=== PATIENT | female | born 1995 | race Caucasian/White ===

== ENCOUNTER 2018-02-09 20:42 | Emergency (ER) | payer BC ==
[2018-02-09] MEDS ORDERED: oxyCODONE/Acetamin 5/325 MG* TAB PO ONE (21:29)
[2018-02-09] MEDS ORDERED: Ketorolac INJ* 30 MG/ML 1 ML VIAL IM ONE (21:30)
--- NOTE | 2018-02-09 21:39 | ED ---
Lower Extremity - HPI Summary HPI Summary: 22-year-old female presents with right ankle pain today. States she went down the slide and twisted her right ankle. She denies any previous injury to the ankle. No numbness or tingling. has deformity noted to ankle. She denies any knee pain. No other injury. She has not taking anything for pain. She has no medical conditions. - History of Current Complaint Chief Complaint: EDExtremityLower Stated Complaint: FALL,RT ANKLE APIN Time Seen by Provider: 02/09/18 21:17 Hx Last Menstrual Period: NOW Pain Intensity: 10 - Allergies/Home Medications Allergies/Adverse Reactions: Allergies Allergy/AdvReac Type Severity Reaction Status Date / Time azithromycin Allergy chest pain Verified 02/09/18 20:50 PMH/Surg Hx/FS Hx/Imm Hx Endocrine/Hematology History: Denies: Hx Diabetes, Hx Thyroid Disease Cardiovascular History: Denies: Hx Congestive Heart Failure, Hx Hypertension, Hx Pacemaker/ICD Respiratory History: Reports: Hx Asthma Denies: Hx Chronic Obstructive Pulmonary Disease (COPD) GI History: Denies: Hx Ulcer, Other GI Disorders - DENIES History: Reports: Hx Kidney Stones Denies: Hx Dialysis, Hx Renal Disease, Other Problems/Disorders - DENIES Musculoskeletal History: Reports: Hx Back Problems, Other Musculoskeletal History - SEVERE SCOLIOSIS, HERNIATED DISK (UNSURE OF LEVEL) Sensory History: Denies: Hx Hearing Aid Neurological History: Reports: Hx Headaches, Other Neuro Impairments/Disorders - dizziness Psychiatric History: Reports: Hx Panic Disorder - Surgical History Surgery Procedure, Year, and Place: TUBES IN EARS A CHILD - Immunization History Date of Tetanus Vaccine: 244 Date of Influenza Vaccine: up to date Infectious Disease History: No Infectious Disease History: Denies: Hx Clostridium Difficile, Hx Hepatitis, Hx Human Immunodeficiency Virus (HIV), Hx of Known/Suspected MRSA, Hx Shingles, Hx Tuberculosis, Hx Known/ Suspected VRE, Hx Known/Suspected VRSA, History Other Infectious Disease, Traveled Outside the [place] in Last 30 Days - Family History Known Family History: Negative: Diabetes - right ankle - Social History Alcohol Use: None Substance Use Type: Reports: None Smoking Status (MU): Never Smoked Tobacco Have You Smoked in the Last Year: No Review of Systems Negative: Fever Negative: Chest Pain Negative: Shortness Of Breath Positive: Myalgia - right ankle pain All Other Systems Reviewed And Are Negative: Yes Physical Exam Triage Information Reviewed: Yes Vital Signs On Initial Exam: Initial Vitals Temp Pulse Resp BP Pulse Ox 0 F 87 20 144/84 100 02/09/18 20:51 02/09/18 20:51 02/09/18 20:51 02/09/18 20:51 02/09/18 20:51 Vital Signs Reviewed: Yes Appearance: Positive: Well-Appearing Skin: Positive: Warm, Dry Head/Face: Positive: Normal Head/Face Inspection Eyes: Positive: Normal, Conjunctiva Clear ENT: Positive: Pharynx normal Respiratory/Lung Sounds: Positive: Clear to Auscultation, Breath Sounds Present Cardiovascular: Positive: Normal, RRR Musculoskeletal: Positive: Limited @ - right ankle, Other - Tenderness over her right malleolus lateral, good pulses, capillary refill less than 2 seconds, able to wiggle tetanus Neurological: Positive: Normal Psychiatric: Positive: Normal Procedures - Splinting ankle Location: ankle Hand-Made Type: orthoglass Splint: posterior walking Pre-Proc Neuro Vasc Exam: normal Post-Proc Neuro Vasc Exam: normal Diagnostics - Vital Signs Vital Signs Temp Pulse Resp BP Pulse Ox 02/09/18 20:51 0 F 87 20 144/84 100 - Laboratory Lab Statement: Any lab studies that have been ordered have been reviewed, and results considered in the medical decision making process. - Radiology ankle Xray Interpretation: Positive (See Comments) - Fibular fracture with widening of mortise joint Radiology Interpretation Completed By: ED Physician Lower Extremity Course/Dx - Course Course Of Treatment: 22-year-old female presents with right ankle pain today. States she went down the slide and twisted her right ankle. She denies any previous injury to the ankle. No numbness or tingling. has deformity noted to ankle. She denies any knee pain. No other injury. She has not taking anything for pain. She has no medical conditions. On exam edema noted to ambulate on his right ankle. Neurovascularly intact. X-ray shows a fibular fracture with displacement and widening of the mortise joint. Spoke with Dr. Marinelli who said to have call office in the morning. Placed in posterior and u splint. Told to remain nonweightbearing. Gave pain medication. Warned about signs of compartment syndrome. Patient understands agrees the plan. - Diagnoses Differential Diagnosis/HQI/PQRI: Positive: Fracture (Closed), Sprain, Strain Provider Diagnoses: Ankle fracture, right Discharge - Sign-Out/Discharge Documenting (check all that apply): Patient Departure - Discharge Plan Condition: Good Disposition: HOME Prescriptions: oxyCODONE/Acetamin 5/325 MG* [Percocet 5/325 TAB*] 1 tab PO Q6H PRN #16 tab MDD 4 PRN Reason: Pain Patient Education Materials: Ankle Fracture (ED) Referrals: Dede Austin NP [Primary Care Provider] - Jessica Marinelli MD [Medical Doctor] - Additional Instructions: Use crutches and stay nonweight bearing Keep splint on area and keep dry Call ortho office tomorrow to set up appointment for follow up at 8am Use ibuprofen for pain every 6 hours and use narcotic for breakthrough pain every 6 hours for pain Ice, elevate Return to ED if develop numbness or tingling or any new or worsening symptoms - Billing Disposition and Condition Condition: GOOD Disposition: Home
--- OUTSIDE RECORDS SUMMARY | 2018-02-09 21:53 | XMS REPORT ---
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 [address] PayID: [id number] ANA Fung [id number] Medigap Part B Effective: 2012 Policy Number: [employer] Sushma Ramirez Fredi [id number] Group Name: [employer] 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 Cigarette Use Never Smoked Cigarettes ETOH Use Denies alcohol use Recreational Drug Use Denies Drug Use Daily Caffeine Does Not Consume Caffeine occasional soda Enjoy Exercising Does not enjoy exercising Currently Active Patient is currently sexually active Allergies, Adverse Reactions, Alerts Date Description Reaction Status Severity Comments 12/11/2016 Azithromycin active stomach aches 10/20/2011 NKDA inactive Medications Medication Date Status Form Strength Qnty SIG Indications Ordering Provider Vitamin B-12 00// Active Tablets Sub 500mcg 1 by mouth Unknown 0000 every day Vitamin D 12/01/ Hx Capsules [id number] 6caps take 1 Dede (Ergocalciferol 2018 - capsule by Geovanna, ) 01/28/ 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 weekly (for 6 weeks) for vitamin d deficiency Lo/Ovral-28 04/17/ Hx Tablets 0.3-30mg- 1Mont 1 by mouth Z30.09 Dede 2017 - mcg h every day Short, CONTACT LENS ASSISTANT 2016 Norgestimate-Et 04/17/ Hx Tablets 0.25-35mg 28tab One every Dede h Estradiol 2017 - -mcg s day Short, CONTACT LENS ASSISTANT 2017 Lyrica 10/17/ Hx Capsules 75mg 60cap take 1 M54.17 Shawnti 2016 - s capsule Cruz Chavez 12/11/ Before Bed [facility] 2016 For One Week Then Increase To Twice Daily Meloxicam 10/17/ Hx Tablets 15mg 30tab 1 by mouth M54.17 Shawnti 2016 - s daily for Cruz Chavez 12/11/ pain, take [facility]C 2016 with food Colcrys 09/08/ Hx Tablets 0.6mg 14tab take one M10.00 Shawnti 2016 - s tablet by Cruz Chavez, 12/11/ mouth twice [facility] 2016 daily until pain resolves or diarrhea develops Amoxicillin 04/03/ Hx Tablets 875mg 20tab 1 by mouth H66.42 Shawnti 2014 - s twice a day Cruz Chavez 04/13/ for ear [facility] 2014 infection Ciprodex 04/03/ Hx Suspension 0.3-0.1% 7.500 4 drops in H60.392 Shawnti 2014 - ml the left Cruz Chavez 04/13/ ear twice a [facility]C 2014 day for 7 days Ketoconazole 06/27/ Hx Cream 2% 15gm apply small 110.5 Johnnti 2013 - amount to Cruz Chavez 09/08/ affected [facility] 2016 area twice a day Claritin-D 24 03/31/ Hx Tablets ER 10-240mg 30tab take one 381.04 Shawnti Hour 2013 - 24HR s tablet by Cruz Chavez, 09/08/ mouth once [facility] 2016 daily as needed allergies and congestion Symbicort 01/26/ Hx Aerosol 160-4.5mc 10.20 inhale 2 493.92 Mikiewnti 2013 - g/Act 0gm puffs twice KoryAlyssa Scott, 12/11/ a day [facility] 2016 Albuterol 01/26/ Hx Nebulizer (2.5mg/3M 90ml use one Mikiewnti Sulfate 2013 - ) 0.083% vial in Cruz Chavez, 12/11/ nebulizer [facility] 2016 four times a day as needed wheeze/shor tness of breath Advair Diskus 01/05/ Hx Aerosol 250-50mcg 60uni use one 493.92 Mikiewnti 2013 - /Dose ts inhalation Cruz Chavez, 01/26/ two times a [facility] 2013 day for asthma Naprosyn 07/28/ Hx Tablets 500mg 60tab take one 465.9 Mikiewnti 2013 - s tablet by KoryAlyssa Scott, 01/05/ mouth twice [facility] 2013 a day for pain and swelling in the shoulder Prednisone 07/08/ Hx Tablets 50mg 5tabs one pill po 493.92 Mikiewnti 2013 - daily for 5 R. Scott, 01/05/ days for [facility] 2014 breathing Asmanex 120 07/08/ Hx Aerosol 220mcg/In 1unit 1 inh daily 493.92 Shawnti Metered Doses 2012 - h s for asthma Cruz Chavez, 01/05/ [facility] 2014 Desloratadine 01/28/ Hx Tablets 5mg 30tab 1 po daily 477.1 Mikiewnti 2012 - s for Kory. Scott, 07/08/ allergies [facility]C 2012 Lo/Ovral-28 11/30/ Hx Tablets 0.3-30mg- 90tab 1 po qd V25.09 Mikiewnti 2012 - mcg s R. Scott, 01/28/ [facility]C 2012 Proair HFA 11/27/ Hx Aerosol 108(90Bas 8.500 2 puffs Diana 2012 - e) gm q4hr as R. Scott, 01/28/ mcg/Act needed [facility] 2018 Azithromycin 11/27/ Hx Tablets 250mg 6tabs 2 po qd day 466.0 Hieu 2012 - , then 1 Walter, 01/28/ po qd days M.D. 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 Medications Administered in Office Medication Date Status Form Strength Qnty SIG Indications Ordering Provider Medroxyprogesteron 09/24 Administered Injection Lab and e Acetate 1 MG /2012 Office (Depo-Provera) Services Injection Depo 07/02 Administered Injection Lab and Provera--Injection /2011 Office --150 MG Services Depo 04/16 Administered Injection Shawnti Provera--Injection /2011 Cruz Chavez, --150 MG [facility]ESS [facility]C Immunizations CPT Code Status Date Vaccine Lot # [id number] Given 12/11/2016 Tdap (Adacel) [id number] 38153 Given 04/23/2006 Menactra (meningococcal conjugate vaccine) 69559 Given 07/18/2005 Tdap (Adacel) 83629 Given 04/22/2005 Varicella (Chicken Pox) Vaccine 20059 Given 01/29/1999 Inactivated Polio Vaccine, Injectable (Ipol) 75143 Given 01/29/1999 MMR (Measles,Mumps,Rubella) 13926 Given 12/25/1998 DTaP (Daptacel) 41590 Given 08/27/1995 MMR (Measles,Mumps,Rubella) 02482 Given 08/27/1995 DTaP (Daptacel) 21646 Given 1994 Hep B Vaccine, Ped/Adol Dose 3 Dose (Engerix or Recombivax) 84207 Given 1994 Inactivated Polio Vaccine, Injectable (Ipol) 37102 Given 1994 DTaP (Daptacel) 40531 Given 1994 Inactivated Polio Vaccine, Injectable (Ipol) 51282 Given 1994 DTaP (Daptacel) 62026 Given 1994 Hep B Vaccine, Ped/Adol Dose 3 Dose (Engerix or Recombivax) 36716 Given 1994 Inactivated Polio Vaccine, Injectable (Ipol) 00079 Given 1994 DTaP (Daptacel) 83854 Given 1994 Hep B Vaccine, Ped/Adol Dose 3 Dose (Engerix or Recombivax) 05185 Refused 10/17/2016 Influenza Virus Vaccine, Quadrivalent, 3 Yr > Quad , Preserv Free Vital Signs Date Vital Result Comment 01/28/2018 Weight 239.00 lb Weight in kg's 108.410 BP Systolic 110 mmHg BP Diastolic 70 mmHg Heart Rate 74 /min Body Temperature 99.4 F Respiratory Rate 14 /min 11/27/2017 Weight 236.00 lb Weight in kg's 107.050 BP Systolic 118 mmHg BP Diastolic 74 mmHg Heart Rate 72 /min Body Temperature 98.3 F Respiratory Rate 16 /min O2 % BldC Oximetry 98 % 05/18/2017 Weight 225.00 lb Weight in kg's 102.060 BP Systolic 120 mmHg BP Diastolic 90 mmHg Heart Rate 68 /min Body Temperature 98.9 F Respiratory Rate 18 /min Last Menstrual Period [id number] 04/17/2017 Weight 222.00 lb Weight in kg's 100.699 BP Systolic 110 mmHg BP Diastolic 70 mmHg Heart Rate 88 /min Body Temperature 98.7 F Respiratory Rate 14 /min 04/09/2017 Weight 224.00 lb Weight in kg's 101.606 BP Systolic 100 mmHg BP Diastolic 62 mmHg Heart Rate 64 /min Body Temperature 98.8 F Respiratory Rate 14 /min 12/11/2016 Weight 232.00 lb Weight in kg's 105.235 BP Systolic 90 mmHg BP Diastolic 68 mmHg Heart Rate 68 /min Body Temperature 97.9 F Respiratory Rate 12 /min Height 65.5 inches 5'5.50" BMI (Body Mass Index) 38.0 kg/m2 Last Menstrual Period [id number] 10/17/2016 Weight 231.00 lb Weight in kg's 104.782 BP Systolic 100 mmHg BP Diastolic 60 mmHg Heart Rate 60 /min Body Temperature 98.3 F Respiratory Rate 12 /min 09/08/2016 Weight 233.00 lb Weight in kg's 105.689 BP Systolic 122 mmHg BP Diastolic 74 mmHg Heart Rate 74 /min Body Temperature 98.4 F Respiratory Rate 16 /min O2 % BldC Oximetry 99 % 04/03/2015 Weight 232.00 lb Weight in kg's 105.235 BP Systolic 110 mmHg BP Diastolic 90 mmHg Heart Rate 64 /min Body Temperature 97.1 F 06/27/2014 Weight 223.00 lb Weight in kg's 101.153 BP Systolic 100 mmHg BP Diastolic 70 mmHg Heart Rate 72 /min Body Temperature 98.4 F 03/31/2014 Weight 226.00 lb Weight in kg's 102.514 BP Systolic 100 mmHg BP Diastolic 70 mmHg Heart Rate 93 /min 01/26/2014 Weight 228.00 lb Weight in kg's 103.421 BP Systolic 106 mmHg BP Diastolic 72 mmHg Heart Rate 92 /min Body Temperature 98.5 F O2 % BldC Oximetry 98 % 01/05/2014 Weight 231.00 lb Weight in kg's 104.782 BP Systolic 138 mmHg BP Diastolic 64 mmHg Heart Rate 84 /min Body Temperature 98.3 F O2 % BldC Oximetry 98 % 12/07/2013 Weight 226.00 lb Weight in kg's 102.514 BP Systolic 114 mmHg BP Diastolic 70 mmHg Heart Rate 88 /min Body Temperature 98.2 F Height 64.5 inches 5'4.50" BMI (Body Mass Index) 38.2 kg/m2 07/28/2013 Weight 216.00 lb Weight in kg's 97.978 BP Systolic 100 mmHg BP Diastolic 70 mmHg Heart Rate 60 /min Body Temperature 98.4 F 07/08/2013 Weight 214.00 lb Weight in kg's 97.070 BP Systolic 124 mmHg BP Diastolic 86 mmHg Heart Rate 80 /min Body Temperature 96.9 F O2 % BldC Oximetry 98 % 04/08/2013 Weight 211.00 lb Weight in kg's 95.710 BP Systolic 114 mmHg BP Diastolic 78 mmHg Heart Rate 96 /min Weight Percentile >97th 01/28/2013 Weight 209.00 lb Weight in kg's 94.802 BP Systolic 114 mmHg BP Diastolic 78 mmHg Heart Rate 102 /min Body Temperature 97.8 F Weight Percentile >97th O2 % BldC Oximetry 98 % 11/30/2012 Weight 207.00 lb Weight in kg's 93.895 BP Systolic 100 mmHg BP Diastolic 70 mmHg Heart Rate 82 /min Height 64.5 inches 5'4.50" Height Percentile 53 % Weight Percentile >97th BMI (Body Mass Index) 35.0 kg/m2 Body Mass Index Percentile 97 % O2 % BldC Oximetry 99 % 11/27/2012 BP Systolic 99 mmHg BP Diastolic 60 mmHg Heart Rate 98 /min Body Temperature 98.9 F O2 % BldC Oximetry 98 % Ra 08/03/2012 Weight 202.00 lb Weight in kg's 91.627 BP Systolic 99 mmHg BP Diastolic 62 mmHg Heart Rate 98 /min Body Temperature 98.9 F Weight Percentile 97th 05/03/2012 Weight 192.00 lb Weight in kg's 87.091 BP Systolic 112 mmHg BP Diastolic 66 mmHg Heart Rate 72 /min Weight Percentile 96th 04/16/2012 Weight 189.00 lb Weight in kg's 85.730 BP Systolic 110 mmHg BP Diastolic 80 mmHg Heart Rate 72 /min Weight Percentile 9602/19/2012 Weight 190.00 lb Weight in kg's 86.184 BP Systolic 100 mmHg BP Diastolic 70 mmHg Heart Rate 68 /min Weight Percentile 9601/29/2012 Weight 191.00 lb Weight in kg's 86.638 BP Systolic 90 mmHg BP Diastolic 60 mmHg Heart Rate 76 /min Body Temperature 99.3 F Weight Percentile 9612/17/2011 Weight 190.00 lb Weight in kg's 86.184 BP Systolic 100 mmHg BP Diastolic 62 mmHg Heart Rate 68 /min Body Temperature 98.0 F Weight Percentile 9610/20/2011 Weight 184.00 lb Weight in kg's 83.462 BP Systolic 100 mmHg BP Diastolic 70 mmHg Heart Rate 72 /min Height 65 inches 5'5" Height Percentile 62 % Weight Percentile 96th BMI (Body Mass Index) 30.6 kg/m2 Body Mass Index Percentile 95 % Right Visual Acuity Distance 20/20 Results Test Date Test Result H/L Range Note Laboratory test finding 01/14/2018 Ferritin 33.1 ng/mL 11-307 1 TSH (Thyroid Stim Horm) 1.48 mcIU/mL 0.34-5.60 2 Vitamin D Total 25(Oh) 29.1 ng/mL 20-50 3 Vitamin B12 1279 pg/mL High 180-914 4 CBC Auto Diff 01/14/2018 White Blood Count 8.5 10^3/uL 3.5-10.8 Red Blood Count 4.92 10^6/uL 4.00-5.40 Hemoglobin 13.6 g/dL 12.0-16.0 Hematocrit 40 % 35-47 Mean Corpuscular Volume 81 fL 80-97 Mean Corpuscular Hemoglobin 28 pg 27-31 Mean Corpuscular HGB Conc 34 g/dL 31-36 Red Cell Distribution Width 13 % 10.5-15 Platelet Count 388 10^3/uL 150-450 Mean Platelet Volume 7.9 um3 7.4-10.4 Abs Neutrophils 5.7 10^3/uL 1.5-7.7 Abs Lymphocytes 2.2 10^3/uL 1.0-4.8 Abs Monocytes 0.5 10^3/uL 0-0.8 Abs Eosinophils 0.1 10^3/uL 0-0.6 Abs Basophils 0 10^3/uL 0-0.2 Abs Nucleated RBC 0 10^3/uL Granulocyte % 66.5 % 38-83 Lymphocyte % 26.4 % 25-47 Monocyte % 5.3 % 0-7 Eosinophil % 1.2 % 0-6 Basophil % 0.6 % 0-2 Nucleated Red Blood Cells % 0.1 Iron & Iron Binding Capacity 01/14/2018 Iron 53 g/dL 50-212 Unsaturated Iron Binding 346 g/dL Total Iron Binding Capacity 399 g/dL 250-450 Transferrin 285 mg/dL 203-362 % Iron Saturation 13 % Low 15-55 Comp Metabolic Panel 01/14/2018 Sodium 139 mmol/L 135-145 Potassium 3.7 mmol/L 3.5-5.0 Chloride 103 mmol/L 101-111 Co2 Carbon Dioxide 29 mmol/L 22-32 Anion Gap 7 mmol/L 2-11 Glucose 105 mg/dL High 70-100 Blood Urea Nitrogen 11 mg/dL 6-24 Creatinine 0.73 mg/dL 0.51-0.95 BUN/Creatinine Ratio 15.1 8-20 Calcium 9.3 mg/dL 8.6-10.3 Total Protein 6.9 g/dL 6.4-8.9 Albumin 4.4 g/dL 3.2-5.2 Globulin 2.5 g/dL 2-4 Albumin/Globulin Ratio 1.8 1-3 Total Bilirubin 0.70 mg/dL 0.2-1.0 Alkaline Phosphatase 100 U/L 34-104 Alt 40 U/L 7-52 Ast 25 U/L 13-39 Egfr Non- 98.8 >60 Egfr 119.5 >60 5 Laboratory test finding 11/27/2017 Ferritin 33.8 ng/mL 11-307 6 TSH (Thyroid Stim Horm) 2.04 mcIU/mL 0.34-5.60 7 Vitamin D Total 25(Oh) 13.8 ng/mL Low 20-50 8 Vitamin B12 437 pg/mL 180-914 9 CBC Auto Diff 11/27/2017 White Blood Count 7.5 10^3/uL 3.5-10.8 Red Blood Count 5.09 10^6/uL 4.0-5.4 Hemoglobin 14.1 g/dL 12.0-16.0 Hematocrit 41 % 35-47 Mean Corpuscular Volume 81 fL 80-97 Mean Corpuscular Hemoglobin 28 pg 27-31 Mean Corpuscular HGB Conc 34 g/dL 31-36 Red Cell Distribution Width 13 % 10.5-15 Platelet Count 359 10^3/uL 150-450 Mean Platelet Volume 7.7 um3 7.4-10.4 Abs Neutrophils 4.8 10^3/uL 1.5-7.7 Abs Lymphocytes 2.1 10^3/uL 1.0-4.8 Abs Monocytes 0.5 10^3/uL 0-0.8 Abs Eosinophils 0.1 10^3/uL 0-0.6 Abs Basophils 0 10^3/uL 0-0.2 Abs Nucleated RBC 0 10^3/uL Granulocyte % 63.7 % 38-83 Lymphocyte % 28.0 % 25-47 Monocyte % 6.3 % 0-7 Eosinophil % 1.3 % 0-6 Basophil % 0.7 % 0-2 Nucleated Red Blood Cells % 0.1 Iron & Iron Binding Capacity 11/27/2017 Iron 49 g/dL Low 50-212 Unsaturated Iron Binding 374 g/dL Total Iron Binding Capacity 423 g/dL 250-450 Transferrin 302 mg/dL 203-362 % Iron Saturation 12 % Low 15-55 Comp Metabolic Panel 11/27/2017 Sodium 138 mmol/L Low 139-145 Potassium 4.0 mmol/L 3.5-5.0 Chloride 102 mmol/L 101-111 Co2 Carbon Dioxide 28 mmol/L 22-32 Anion Gap 8 mmol/L 2-11 Glucose 93 mg/dL 70-100 Blood Urea Nitrogen 10 mg/dL 6-24 Creatinine 0.72 mg/dL 0.51-0.95 BUN/Creatinine Ratio 13.9 8-20 Calcium 9.5 mg/dL 8.6-10.3 Total Protein 6.9 g/dL 6.4-8.9 Albumin 4.7 g/dL 3.2-5.2 Globulin 2.2 g/dL 2-4 Albumin/Globulin Ratio 2.1 1-3 Total Bilirubin 0.70 mg/dL 0.2-1.0 Alkaline Phosphatase 98 U/L 34-104 Alt 48 U/L 7-52 Ast 35 U/L 13-39 Egfr Non- 100.4 >60 Egfr 129.1 >60 10 Laboratory test 05/21/2017 Urine Culture And SEE RESULT BELOW 11 finding Sensitivities Urine DIP 05/21/2017 Leukocytes 2+ High Neg Urine Nitrites neg Neg Urobilinogen norm Norm Total Protein, Urine +1 High Neg Urine pH 6 5-6 Urine Blood 250 High Neg Specific Flushing 1.020 1.01-1.02 Urine Ketones small Neg Urine Bilirubin neg Neg Urine Glucose norm Norm Laboratory test 05/18/2017 HCG DIP Test neg Neg finding Laboratory test 05/18/2017 Gardnerella/Yeast: SEE RESULT BELOW 12 finding Vaginal Dna GC/Chlamydia 05/18/2017 Chlamydia trachomatis Negative Negative Amplified Rna Rna Neisseria gonorrhoeae (GC) Rna Negative Negative Urine DIP 05/18/2017 Leukocytes ++ Neg Urine Nitrites neg Neg Urobilinogen neg Norm Total Protein, Urine neg Neg Urine pH 5 5-6 Urine Blood about 50 Neg Specific Flushing 1.025 High 1.01-1.02 Urine Ketones neg Neg Urine Bilirubin neg Neg Urine Glucose neg Norm Laboratory test finding 05/18/2017 Cytology SEE RESULT BELOW 13 Trichomonas Vaginalis Rna Negative Negative 14 Laboratory test finding 12/11/2016 Hemoglobin A1c (Glyco 5.0 % Less than 6.0 15 HGB) TSH (Thyroid Stim Horm) 1.47 mcIU/mL 0.34-5.60 16 Lipid Profile (Trig/Chol/HDL) 12/11/2016 Triglycerides 193 mg/dL 17 Cholesterol 133 mg/dL 18 HDL Cholesterol 38.5 mg/dL 19 LDL Cholesterol 56 mg/dL 20 CBC Auto Diff 12/11/2016 White Blood Count 10.5 10^3/uL 3.5-10.8 Red Blood Count 4.98 10^6/uL 4.0-5.4 Hemoglobin 13.7 g/dL 12.0-16.0 Hematocrit 41 % 35-47 Mean Corpuscular Volume 83 fL 80-97 Mean Corpuscular Hemoglobin 27 pg 27-31 Mean Corpuscular HGB Conc 33 g/dL 31-36 Red Cell Distribution Width 13 % 10.5-15 Platelet Count 358 10^3/uL 150-450 Mean Platelet Volume 8 um3 7.4-10.4 Abs Neutrophils 7.1 10^3/uL 1.5-7.7 Abs Lymphocytes 2.7 10^3/uL 1.0-4.8 Abs Monocytes 0.5 10^3/uL 0-0.8 Abs Eosinophils 0.1 10^3/uL 0-0.6 Abs Basophils 0 10^3/uL 0-0.2 Abs Nucleated RBC 0.01 10^3/uL Granulocyte % 67.4 % 38-83 Lymphocyte % 25.8 % 25-47 Monocyte % 5.2 % 1-9 Eosinophil % 1.2 % 0-6 Basophil % 0.4 % 0-2 Nucleated Red Blood Cells % 0 CBC Auto Diff 09/14/2015 White Blood Count 8.8 10^3/uL 3.5-10.8 Red Blood Count 5.09 10^6/uL 4.0-5.4 Hemoglobin 13.9 g/dL 12.0-16.0 Hematocrit 41 % 35-47 Mean Corpuscular Volume 81 fL 80-97 Mean Corpuscular Hemoglobin 27 pg 27-31 Mean Corpuscular HGB Conc 34 g/dL 31-36 Red Cell Distribution Width 13 % 10.5-15 Platelet Count 418 10^3/uL 150-450 Mean Platelet Volume 7 um3 Low 7.4-10.4 Abs Neutrophils 4.5 10^3/uL 1.5-7.7 Abs Lymphocytes 3.5 10^3/uL 1.0-4.8 Abs Monocytes 0.6 10^3/uL 0-0.8 Abs Eosinophils 0.1 10^3/uL 0-0.6 Abs Basophils 0.1 10^3/uL 0-0.2 Abs Nucleated RBC 0.01 10^3/uL Granulocyte % 50.5 % 38-83 Lymphocyte % 40.1 % 25-47 Monocyte % 7.2 % 1-9 Eosinophil % 1.6 % 0-6 Basophil % 0.6 % 0-2 Nucleated Red Blood Cells % 0.1 Urinalysis Profile 09/14/2015 Urine Color Yellow Urine Appearance Cloudy Urine Specific Flushing 1.026 1.010-1.030 Urine pH 5.0 5-9 Urine Urobilinogen Negative Negative Urine Ketones Negative Negative Urine Protein 1+(30 mg/dL) Negative Urine Leukocytes Trace Negative Urine Blood 3+ Negative Urine Nitrite Negative Negative Urine Bilirubin Negative Negative Urine Glucose Negative Negative Urine White Blood Cell 2+(11-20/hpf) Absent Urine Red Blood Cell 3+(>10/hpf) Absent Urine Bacteria Absent Absent Urine Squamous Epithelial Cell Present Absent Laboratory test finding 09/14/2015 HCG < 0.60 mIU/mL 21 Laboratory test finding 09/14/2015 Urine Culture SEE RESULT BELOW 22 Comp Metabolic Panel 09/14/2015 Sodium 135 mmol/L 133-145 Potassium 3.4 mmol/L Low 3.5-5.0 Chloride 103 mmol/L 101-111 Co2 Carbon Dioxide 26 mmol/L 22-32 Anion Gap 6 mmol/L 2-11 Glucose 104 mg/dL High 70-100 Blood Urea Nitrogen 12 mg/dL 6-24 Creatinine 0.78 mg/dL 0.51-0.95 BUN/Creatinine Ratio 15.4 8-20 Calcium 9.1 mg/dL 8.6-10.3 Total Protein 7.1 g/dL 6.4-8.9 Albumin 4.5 g/dL 3.2-5.2 Globulin 2.6 g/dL 2-4 Albumin/Globulin Ratio 1.7 1-3 Total Bilirubin 1.10 mg/dL High 0.2-1.0 Alkaline Phosphatase 95 U/L 34-104 Alt 31 U/L 7-52 Ast 16 U/L 13-39 Egfr Non- 93.2 >60 Egfr 119.9 >60 23 Laboratory test finding 11/30/2014 Lipase 22 U/L 11.0-82.0 C Reactive Protein 7.03 mg/L High < 5.00 24 Urine Culture SEE RESULT BELOW 25 Urinalysis Profile 11/30/2014 Urine Color Yellow Urine Appearance Clear Urine Specific Flushing 1.017 1.010-1.030 Urine pH 5.0 5-9 Urine Urobilinogen Negative Negative Urine Ketones Negative Negative Urine Protein Negative Negative Urine Leukocytes Trace Negative Urine Blood 2+ Negative Urine Nitrite Negative Negative Urine Bilirubin Negative Negative Urine Glucose Negative Negative Urine White Blood Cell Trace(0-5/hpf) Absent Urine Red Blood Cell 2+(6-10/hpf) Absent Urine Bacteria 1+ Absent Urine Squamous Epithelial Cell Present Absent CBC Auto Diff 11/30/2014 White Blood Count 14.0 10^3/uL High 4.8-10.8 Red Blood Count 5.12 10^6/uL 4.0-5.4 Hemoglobin 14.6 g/dL 12.0-16.0 Hematocrit 43 % 35-47 Mean Corpuscular Volume 83 fL 80-97 Mean Corpuscular Hemoglobin 29 pg 27-31 Mean Corpuscular HGB Conc 34 g/dL 31-36 Red Cell Distribution Width 13 % 10.5-15 Platelet Count 416 10^3/uL 150-450 Mean Platelet Volume 8 um3 7.4-10.4 Abs Neutrophils 12.3 10^3/uL High 1.5-7.7 Abs Lymphocytes 1.3 10^3/uL 1.0-4.8 Abs Monocytes 0.4 10^3/uL 0-0.8 Abs Eosinophils 0 10^3/uL 0-0.6 Abs Basophils 0 10^3/uL 0-0.2 Abs Nucleated RBC 0 10^3/uL Granulocyte % 87.4 % High 38-83 Lymphocyte % 9.2 % Low 25-47 Monocyte % 3.0 % 1-9 Eosinophil % 0.1 % 0-6 Basophil % 0.3 % 0-2 Nucleated Red Blood Cells % 0 Comp Metabolic Panel 11/30/2014 Sodium 135 mmol/L 133-145 Potassium 3.9 mmol/L 3.5-5.0 Chloride 99 mmol/L Low 101-111 Co2 Carbon Dioxide 28 mmol/L 22-32 Anion Gap 8 mmol/L 2-11 Glucose 139 mg/dL High 70-100 Blood Urea Nitrogen 9 mg/dL 6-24 Creatinine 0.69 mg/dL 0.51-0.95 BUN/Creatinine Ratio 13.0 8-20 Calcium 9.7 mg/dL 8.6-10.3 Total Protein 7.9 g/dL 6.4-8.9 Albumin 4.8 g/dL 3.2-5.2 Globulin 3.1 g/dL 2-4 Albumin/Globulin Ratio 1.5 1-3 Total Bilirubin 0.70 mg/dL 0.2-1.0 Alkaline Phosphatase 111 U/L High 34-104 Alt 34 U/L 7-52 Ast 24 U/L 13-39 Egfr Non- 108.5 >60 Egfr 139.5 >60 26 Laboratory test finding 12/07/2013 Strep Screen NEG Neg Laboratory test finding 04/08/2013 HCG DIP Test neg Neg Basic Metabolic Panel 04/08/2013 Sodium 139 mmol/L 133-145 Potassium 3.5 mmol/L 3.5-5.0 Chloride 103 mmol/L 101-111 Co2 Carbon Dioxide 27.0 mmol/L 22-32 Anion Gap 9.0 mmol/L 2-11 Glucose 78 mg/dL 70-100 Blood Urea Nitrogen 8 mg/dL 6-24 Creatinine 0.80 mg/dL 0.50-1.40 BUN/Creatinine Ratio 10.0 8-20 Calcium 9.3 mg/dL 8.1-9.9 Egfr Non- 93.4 >60 Egfr 120.1 >60 27 Urine DIP 04/08/2013 Leukocytes ++ Neg Urine Nitrites neg Neg Urine pH 5 5-6 Total Protein, Urine neg Neg Urine Glucose norm Norm Urine Ketones neg Neg Urobilinogen norm Norm Urine Bilirubin neg Neg Urine Blood trace Neg Specific Flushing 1.01 1.01-1.02 Laboratory test finding 04/08/2013 Hemoglobin A1c 5.2 % Less than 6.0 28 Throat-Beta Strept 02/13/2013 Throat Beta Strep (SEE NOTE) 29 Culture Urine Culture And 11/28/2012 Urine Culture (SEE NOTE) 30 Sensitivities Comp Metabolic Panel 11/28/2012 Sodium 139 mmol/L 133-145 Potassium 3.6 mmol/L 3.5-5.0 Chloride 105 mmol/L 101-111 Co2 Carbon Dioxide 27.0 mmol/L 22-32 Anion Gap 7.0 mmol/L 2-11 Glucose 93 mg/dL 70-100 Blood Urea Nitrogen 10 mg/dL 6-24 Creatinine 0.70 mg/dL 0.50-1.40 BUN/Creatinine Ratio 14.3 8-20 Calcium 9.3 mg/dL 8.1-9.9 Total Protein 7.8 g/dL 6.2-8.1 Albumin 4.4 g/dL 3.6-5.4 Globulin 3.4 g/dL 2-4 Albumin/Globulin Ratio 1.3 1-3 Total Bilirubin 0.7 mg/dL 0.4-1.5 Alkaline Phosphatase 104 U/L 50-176 Alt 38 U/L 14-54 Ast 27 U/L 12-42 Egfr Non- 109.0 >60 Egfr 140.2 >60 31 Laboratory test finding 11/28/2012 Amylase 32 U/L 20-120 Lipase 31 U/L 22-51 C Reactive Protein 1.5 mg/dL High Less than 0.5 Serum Negative Negative 32 CBC Auto Diff 11/28/2012 White Blood Count 10.1 10^3/uL 4.8-10.8 Red Blood Count 5.32 10^6/uL 4.0-5.4 Hemoglobin 14.8 g/dL 12.0-16.0 Hematocrit 43 % 35-47 Mean Corpuscular Volume 81 fL 80-97 Mean Corpuscular Hemoglobin 28 pg 27-31 Mean Corpuscular HGB Conc 34 g/dL 31-36 Red Cell Distribution Width 13 % 10.5-15 Platelet Count 393 10^3/uL 150-450 Mean Platelet Volume 7 um3 Low 7.4-10.4 Abs Neutrophils 6.6 10^3/uL 1.5-7.7 Abs Lymphocytes 2.7 10^3/uL 1.0-4.8 Abs Monocytes 0.7 10^3/uL 0-0.8 Abs Eosinophils 0.1 10^3/uL 0-0.6 Abs Basophils 0 10^3/uL 0-0.2 Abs Nucleated RBC 0 10^3/uL Granulocyte % 65.4 % 38-83 Lymphocyte % 26.4 % 25-47 Monocyte % 6.5 % 1-9 Eosinophil % 1.4 % 0-6 Basophil % 0.3 % 0-2 Nucleated Red Blood Cells % 0 Urinalysis 11/28/2012 Urine Color Yellow Urine Appearance Clear Urine Specific Flushing 1.016 1.010-1.030 Urine Esterase 2+ Negative Urine Nitrate Negative Negative Urine Urobilinogen Negative E.U./dL Negative Urine Protein Negative mg/dL Negative Urine pH 5.0 5-9 Urine Blood 3+ Negative Urine Ketones Negative mg/dL Negative Urine Bilirubin Negative Negative Urine Glucose Negative mg/dL Negative Urine Microscopic 11/28/2012 Urine WBC 1+ (<10 /hpf) None Seen Urine RBC 2+ (>3-10 /hpf) None Seen Bacteria Urine 1+ None Seen Laboratory test finding 08/03/2012 Genital Culture (SEE NOTE) 33 GC/Chlamydia Amplified Rna 08/03/2012 GC/Chlamydia Rna (SEE NOTE) 34 Laboratory test finding 04/16/2012 HCG DIP Test NEG Neg CBC Auto Diff 01/28/2012 White Blood Count 9.5 CUMM 4.8-10.8 Red Cell Count 4.95 CUMM 4.2-5.4 Hemoglobin 13.9 g/dL 12.0-16.0 Hematocrit 41 % 35-47 Mean Corpuscular Volume 83 um3 79-97 Mean Corpuscular Hemoglob 28 pg 27-31 Mean Corpuscular HGB Cone 34 g/dL 32-36 Redcell Distribution WDTH 13 % 10.5-15 Platelet Count 394 CUMM 150-450 Mean Platelet Volume 7.4 um3 7.4-10.4 Gran % 70.7 % 38-83 Lymph % 23.0 % Low 25-47 Mononuclear % 5.1 % 1-9 Eosinophil % 0.9 % 0-6 Basophil % 0.3 % 0-2 Abs Lymphs 2.2 1.0-4.8 Abs Mononuclear 0.5 0-0.8 Absolute Neutrophil Count 6.7 1.5-7.7 Abs Eosinophils 0.1 0-0.6 Abs Basophils 0 0-0.2 Comp Metabolic Panel 01/28/2012 Sodium 136 mmol/L 135-145 Potassium 3.6 mmol/L 3.5-5.0 Chloride 100 mmol/L Low 101-111 Co2 (Carbon Dioxide) 29.0 mmol/L 22-32 Anion Gap 7.0 mmol/L 2-11 35 Glucose 100 mg/dL 70-100 BUN 7 mg/dL 6-24 Creatinine 0.7 mg/dL 0.50-1.40 One Over Creatinine 1.42 BUN/Creatinine Ratio 10.0 8-20 Calcium 9.4 mg/dL 8.1-9.9 Total Protein 7.1 GM/DL 6.2-8.1 Albumin 4.3 GM/DL 3.6-5.4 Globulin 2.8 GM/DL 2-4 Albumin/Globulin Ratio 1.5 1-3 Bilirubin Total 1.1 mg/dL 0.4-1.5 36 Alkaline Phosphatase 96 U/L 40-122 Alt (SGPT) 32 U/L 14-54 Ast (Sgot) 25 U/L 12-42 Laboratory test finding 01/28/2012 Amylase 34 U/L 20-120 37 Lipase 33 U/L 22-51 Urinalysis W/Microscopic 01/28/2012 Ua Color YELLOW Yellow Appearance-Urine CLOUDY Clear Specific Flushing-Ur 1.022 1.010-1.030 Esterase-Urine 3+ Negative Nitrite NEGATIVE Negative Chrqzhxekvkt-Tl-KPV NEGATIVE Negative Protein-Urine TRACE Negative PH-Urine 8.5 5-9 Blood-Urine NEGATIVE Negative Ketones-Urine NEGATIVE Negative Bilirubin-Ur NEGATIVE Negative Glucose-Urine NEGATIVE Negative WBC-Urine 0-2 0-5 RBC-Urine NONE SEEN 0-2 Epith Cells-Ur MANY None Bacteria-Urine TRACE None Amorphous Sed-U 2+ None Liver Function Panel 01/28/2012 Bilirubin Direct 0.4 mg/dL 0.1-0.5 Indirect Bilirubin 0.7 mg/dL 0.3-1.0 38 Urine Culture & Sensitivi 01/28/2012 M <SEE NOTE> 39 Urine DIP 10/20/2011 Leukocytes NEG Neg Urine Nitrites NEG Neg Urine pH 5 5-6 Total Protein, Urine NEG Neg Urine Glucose NORM Norm Urine Ketones NEG Neg Urobilinogen NORM Norm Urine Bilirubin NEG Neg Urine Blood NEG Neg Specific Flushing N/A Low 1.01-1.02 1 [id number] 2 [id number] 3 [id number] 4 Normal Range 180 to 914 Indeterminate Range 145 to 180 Deficient Range <145 5 Because ethnic data is not always readily available, this report includes an eGFR for both -Americans and non- Americans. The National Kidney Disease Education Program (NKDEP) does not endorse the use of the MDRD equation for patients that are not between the ages of 18 and 70, are , have extremes of body size, muscle mass, or nutritional status, or are non- or non-. According to the National Kidney Foundation, irrespective of diagnosis, the stage of the disease is based on the level of kidney function: Stage Description GFR(mL/min/1.73 m(2)) 1 Kidney damage with normal or decreased GFR 90 2 Kidney damage with mild decrease in GFR 60-89 3 Moderate decrease in GFR 30-59 4 Severe decrease in GFR 15-29 5 Kidney failure <15 (or dialysis) 6 [id number] 7 [id number] 8 [id number] 9 Normal Range 180 to 914 Indeterminate Range 145 to 180 Deficient Range <145 10 Because ethnic data is not always readily available, this report includes an eGFR for both -Americans and non- Americans. The National Kidney Disease Education Program (NKDEP) does not endorse the use of the MDRD equation for patients that are not between the ages of 18 and 70, are , have extremes of body size, muscle mass, or nutritional status, or are non- or non-. According to the National Kidney Foundation, irrespective of diagnosis, the stage of the disease is based on the level of kidney function: Stage Description GFR(mL/min/1.73 m(2)) 1 Kidney damage with normal or decreased GFR 90 2 Kidney damage with mild decrease in GFR 60-89 3 Moderate decrease in GFR 30-59 4 Severe decrease in GFR 15-29 5 Kidney failure <15 (or dialysis) 11 SEE RESULT BELOW Name: JADYN HAWKINS : [address]: Dede Austin NP Acct: [id number] Unit: [id number] AGE: 21 Location: [facility] Re05/21/17 SEX: F Status: REG REF SPEC: [id number] SANDEEP: 05/21/[address] [facility] [address]: Dede Austin NP REQ: [id number] RECD: 05/21/17 STATUS: COMP _ SOURCE: URINE SPDESC: ORDERED: Urine Culture COMMENTS: [id number] Urine Source: Random Procedure Result Reported Site Urine Culture Final 05/23/17- 0759 ML No growth of clinically significant organisms * ML - MAIN LAB ([facility]) . END OF REPORT * ML=Testing performed at Main Lab DEPARTMENT OF PATHOLOGY, [address] [place] [address] George Marroquin M.D. Director [facility] # [id number] 12 SEE RESULT BELOW Name: JADYN HAWKINS : [address]: Dede Austin NP Acct: [id number] Unit: [id number] AGE: 21 Location: [facility] Re05/18/17 SEX: F Status: REG REF SPEC: [id number] SANDEEP: 05/18/17-[address] [facility] [address]: Dede Austin NP REQ: [id number] RECD: 05/19/17 STATUS: COMP _ SOURCE: VAGINAL SPDESC: ORDERED: Joseluis,Yeast DNA COMMENTS: [id number] Procedure Result Reported Site Gardnerella/Yeast: Vaginal DNA Final 05/19/17- 1801 ML Organism 1 Negative Gardnerella Organism 2 Negative Lexus The presence of G. vaginalis, although suggestive, is not diagnostic for bacterial vaginosis. Results should be interpreted in conjuction with other clinical and laboratory data available. Women with vaginal discharge should be evaluated for risk factors of cervicitis and pelvic inflammatory disease, toxic shock syndrome (S.aureus), and if present, evaluated for organisms not included in this assay such as N. gonorrhoeae, C. trachomatis, Mobiluncus, Mycoplasma and/or Prevotella. Mixed infections may occur. The performance of this test on patient specimens collected during or immediately after antimicrobial therapy is unknown. The presence or absence of Lexus species, or G. vaginalis cannot be used as a test for therapeutic success or failure. * ML - MAIN LAB ([facility]) . END OF REPORT * ML=Testing performed at Main Lab DEPARTMENT OF PATHOLOGY, [address] [place] [address] George Marroquin M.D. Director [facility] # [id number] 13 SEE RESULT BELOW Name: JADYN HAWKINS GLENDY : [address]: Dede Austin NP Acct: [id number] Unit: [id number] AGE: 21 Location: [facility] Re05/18/17 SEX: F Status: REG REF SPEC: [id number] SANDEEP: 05/18/17-[address]: Dede Austin NP REQ: [id number] RECD: 05/19/17-1256 STATUS: SOUT _ ORDERED: TP IMAGE ANAL, HPV 16/18 GENE COMMENTS: [id number] FINAL DIAGNOSIS Negative for Intraepithelial lesion or Malignancy COMMENTS: Vial reprocessed due to excess blood and scant cellularity on first slide. Reprocessing successful. A. Ectocervical/Endocervical Specimen Adequacy: Satisfactory of evaluation Transformation zone component identified Patient Information: HPV: Thin Layer Pap Test w/reflex to high risk HPV RNA testing when ASCUS HPV 16/18 Genotype Reflex Actual Specimen Date: 05/18/17 LMP If Unknown: unknown Spec Date if unknown: unknown Signed (signature on file) CORNEL Caal (ASCP) 05/20 1453 This Pap test was evaluated with the assistance of the [employer] Test Imaging System. Due to cytologic findings at the meringuer microscope, comprehensive manual rescreening by a Pocket Cutter may be required. The Pap Smear is a screening test designed to aid in the detection of premalignant and malignant conditions of the uterine cervix. It is not a diagnostic procedure and should not be used as the sole means of detecting cervical cancer. Both false- positive and false- negative reports do occur. Depending on your risk status, a Pap smear should be obtained and evaluated every 1-3 years. END OF REPORT * ML=Testing performed at Main Lab DEPARTMENT OF PATHOLOGY, [address] [place] [address] George Marroquin M.D. Director [facility] # [id number] 14 [id number] GC/Chlamydia Source?: Endocervical Trichomonas Source: Endocervical 15 Therapeutic target for the treatment of diabetes Mellitus patients is <7% HBA1C, and in selective patients <6.0%.Please refer to [place] Diabetes Association Diabetic care guidelines for further information. 16 [id number] 17 Desirable <150 Borderline high 150-199 High 200-499 Very High >500 18 Desirable <200 Borderline high 200-239 High >239 19 Low <40 Desirable: 40-60 High: >60 20 Desirable: <100 mg/dL Near Optimal: 100-129 mg/dL Borderline High: 130-159 mg/dL High: 160-189 mg/dL Very High: >189 mg/dL 21 <5.0 Negative 5.0 - 25.0 Indeterminate (Repeat testing recommended after 72 hours) >25.0 Positive Perimenopausal women can display HCG levels of up to 20 mIU/mL 22 SEE RESULT BELOW Name: JADYN HAWKINS : [address]: Thelma Juarez MD Acct: [id number] Unit: [id number] AGE: 20 Location: ED Re09/14/15 SEX: F Status: DEP ER SPEC: [id number] SANDEEP: 09/14/[address] [facility] [address]: Thelma Juarez MD REQ: [id number] RECD: 09/14/15 STATUS: CARLOS LUO DR: Diana Chavez CONTACT LENS ASSISTANT _ SOURCE: URINE SPDESC: ORDERED: Urine Culture Procedure Result Reported Site Urine Culture Final 09/15/15- 0856 ML No growth of clinically significant organisms * ML - MAIN LAB ([facility]) . END OF REPORT * ML=Testing performed at Main Lab DEPARTMENT OF PATHOLOGY, [address] [place] [address] George Marroquin M.D. Director [facility] # [id number] 23 Because ethnic data is not always readily available, this report includes an eGFR for both -Americans and non- Americans. The National Kidney Disease Education Program (NKDEP) does not endorse the use of the MDRD equation for patients that are not between the ages of 18 and 70, are , have extremes of body size, muscle mass, or nutritional status, or are non- or non-. According to the National Kidney Foundation, irrespective of diagnosis, the stage of the disease is based on the level of kidney function: Stage Description GFR(mL/min/1.73 m(2)) 1 Kidney damage with normal or decreased GFR 90 2 Kidney damage with mild decrease in GFR 60-89 3 Moderate decrease in GFR 30-59 4 Severe decrease in GFR 15-29 5 Kidney failure <15 (or dialysis) 24 Acute inflammation: >10.00 25 SEE RESULT BELOW Name: JADYN HAWKINS : [address]: Moni Bales MD Acct: [id number] Unit: [id number] AGE: 19 Location: ED Re11/30/14 SEX: F Status: DEP ER SPEC: [id number] SANDEEP: 11/30/[address]: Moni Bales MD REQ: [id number] RECD: 11/30/14 STATUS: CARLOS LUO DR: Diana Chavez CONTACT LENS ASSISTANT _ SOURCE: URINE SPDESC: ORDERED: Urine Culture Procedure Result Verified Site Urine Culture Final 12/02/14- 0837 ML No Growth Day 2 (<1,000 CFU/mL) * ML - MAIN LAB ([facility]) . END OF REPORT * ML=Testing performed at Main Lab DEPARTMENT OF PATHOLOGY, [address] [place] [address] George Marroquin M.D. Director [facility] # [id number] 26 Because ethnic data is not always readily available, this report includes an eGFR for both -Americans and non- Americans. The National Kidney Disease Education Program (NKDEP) does not endorse the use of the MDRD equation for patients that are not between the ages of 18 and 70, are , have extremes of body size, muscle mass, or nutritional status, or are non- or non-. According to the National Kidney Foundation, irrespective of diagnosis, the stage of the disease is based on the level of kidney function: Stage Description GFR(mL/min/1.73 m(2)) 1 Kidney damage with normal or decreased GFR 90 2 Kidney damage with mild decrease in GFR 60-89 3 Moderate decrease in GFR 30-59 4 Severe decrease in GFR 15-29 5 Kidney failure <15 (or dialysis) 27 Because ethnic data is not always readily available, this report includes an eGFR for both -Americans and non- Americans. The National Kidney Disease Education Program (NKDEP) does not endorse the use of the MDRD equation for patients that are not between the ages of 18 and 70, are , have extremes of body size, muscle mass, or nutritional status, or are non- or non-. According to the National Kidney Foundation, irrespective of diagnosis, the stage of the disease is based on the level of kidney function: Stage Description GFR(mL/min/1.73 m(2)) 1 Kidney damage with normal or decreased GFR 90 2 Kidney damage with mild decrease in GFR 60-89 3 Moderate decrease in GFR 30-59 4 Severe decrease in GFR 15-29 5 Kidney failure <15 (or dialysis) 28 Therapeutic target for the treatment of diabetes Mellitus patients is <7% HBA1C, and in selective patients <6.0%.Please refer to [place] Diabetes Association Diabetic care guidelines for further information. 29 RUN DATE: 02/16/13 [facility] LAB LIVE PAGE 1 RUN TIME: [address] [place] [address] Specimen Inquiry Name: JADYN HAWKINS : [address]: Abdulaziz Gillespie MD Acct: [id number] Unit: [id number] AGE: 17 Location: [facility] Re02/13/13 SEX: F Status: DEP ER SPEC: [id number] SANDEEP: 02/13/[address] [facility] [address]: Abdulaziz Gillespie MD REQ: [id number] RECD: 02/14/13 STATUS: CARLOS LUO DR: Diana Chavez CONTACT LENS ASSISTANT _ SOURCE: THROAT SPDESC: ORDERED: Throat Beta Str QUERIES: Medent Number [id number] Procedure Result Verified Site Throat Beta Strep Culture Final 02/16/13- 822 ML Negative For Group A Beta Streptococcus END OF REPORT * ML=Testing performed at Main Lab DEPARTMENT OF PATHOLOGY, [facility] [employer] [place], [place] [address] George Marroquin M.D. Director [facility] Permit #[id number] 30 RUN DATE: 11/30/12 [facility] LAB LIVE PAGE 1 RUN TIME: 0665 [facility] [place], [place] [address] Specimen Inquiry Name: JADYN HAWKINS : [address]: Jj Ortiz DO Acct: [id number] Unit: [id number] AGE: 17 Location: ED Re11/28/12 SEX: F Status: DEP ER SPEC: [id number] SANDEEP: 11/28/12-[address]: Jj Ortiz DO REQ: [id number] RECD: 11/28/12 STATUS: CARLOS LUO DR: Diana Chavez CONTACT LENS ASSISTANT _ SOURCE: URINE SPDESC: ORDERED: Urine Culture Procedure Result Verified Site Urine Culture Final 11/30/12- 0935 ML Organism 1 NORMAL NEIL [place] Count 75-100,000 (Many) CFU/ML END OF REPORT * ML=Testing performed at Main Lab DEPARTMENT OF PATHOLOGY, [address] [place] [address] George Marroquin M.D. Director [facility] Permit #[id number] 31 Because ethnic data is not always readily available, this report includes an eGFR for both -Americans and non- Americans. The National Kidney Disease Education Program (NKDEP) does not endorse the use of the MDRD equation for patients that are not between the ages of 18 and 70, are , have extremes of body size, muscle mass, or nutritional status, or are non- or non-. According to the National Kidney Foundation, irrespective of diagnosis, the stage of the disease is based on the level of kidney function: Stage Description GFR(mL/min/1.73 m(2)) 1 Kidney damage with normal or decreased GFR 90 2 Kidney damage with mild decrease in GFR 60-89 3 Moderate decrease in GFR 30-59 4 Severe decrease in GFR 15-29 5 Kidney failure <15 (or dialysis) 32 This test detects intact HCG only and is indicated for the early detection of . 33 RUN DATE: 08/06/12 [facility] LAB LIVE PAGE 1 RUN TIME: [address] [place] [address] Specimen Inquiry Name: MARIOWANJADYN MAY : [address]: Diana Chavez NP Acct: [id number] Unit: [id number] AGE: 17 Location: [facility] Re08/03/12 SEX: F Status: REG REF SPEC: [id number] SANDEEP: 08/03/[address] [facility] [address]: Diana Chavez NP REQ: [id number] RECD: 08/03/12 STATUS: COMP _ SOURCE: VAGINAL SPDESC: ORDERED: Genital Culture QUERIES: Medent Number [id number] Procedure Result Verified Site Genital Culture Final 08/06/12- 1033 ML Organism 1 JOSELUIS VAGINALIS - PRESUMPTIVE Quantity 2+ Organism 2 NORMAL NEIL Quantity 3+ END OF REPORT * ML=Testing performed at Main Lab DEPARTMENT OF PATHOLOGY, [address] [place] [address] George Marroquin M.D. Director [facility] Permit #[id number] 34 RUN DATE: 08/06/12 [facility] LAB LIVE PAGE 1 RUN TIME: [address] [place], [place] [address] Specimen Inquiry Name: MARIOJADYN PIKE : [address]: Diana Chavez NP Acct: [id number] Unit: [id number] AGE: 17 Location: [facility] Re08/03/12 SEX: F Status: REG REF SPEC: [id number] SANDEEP: 08/03/12-[address]: Diana Chavez NP REQ: [id number] RECD: 08/03/12 STATUS: COMP _ SOURCE: ENDOCERVIX SPDESC: ORDERED: EDWARD/Leobardoam RNA QUERIES: Medent Number [id number] Procedure Result Verified Site Chlamydia Trachomatis RNA Final 08/06/12- 1542 ML NEGATIVE for Chlamydia trachomatis rRNA GC (N. gonorrhoeae) RNA Final 08/06/12- 1542 ML NEGATIVE for Neisseria gonorrhoeae rRNA A negative result does not preclude the presence of a C. trachomatis or N. gonorrhoeae infection because results are dependent on adequate specimen collection, absence of inhibitors, and sufficient rRNA to be detected. Test results may be affected by improper specimen collection, improper storage, technical error, or specimen mixup. Limitations of the Procedure: The Aptima Combo 2 Assay is not intended for the evaluation of suspected sexual abuse or for other medico-legal indications. For those patients for whom a false positive result may have adverse psychosocial impact, the [facility] recommends retesting by a method using an alternate technology. Therapeutic failure or success cannot be determined with the Aptima Combo 2 Assay since nucleic acid may persist following appropriate antimicrobial therapy. Results from the Aptima Combo 2 Assay should be interpreted in conjunction with other laboratory and clinical data available to the clinican. CONTINUED ON NEXT PAGE * ML=Testing performed at Main Lab DEPARTMENT OF PATHOLOGY, [facility] [place], [place] [address] George Marroquin M.D. Director [facility] Permit #[id number] RUN DATE: 08/06/12 [facility] LAB LIVE PAGE 2 RUN TIME: 166 [facility] [address] [place], [place] [address] Specimen Inquiry Patient: JADYN HAWKINS [id number] (Continued) Specimen: [id number] Collected: 08/03/12 Received: 08/03/12 (Continued) Procedure Result Verified Site GC (N. gonorrhoeae) RNA Final (continued) 08/06/12 3044 Performance characteristics for detecting C. trachomatis and N. gonorrhoeae are derived from high prevalence populations. Positive results in low prevalence populations should be interpreted carefully with the understanding that the likelihood of a false positive may be higher than a true positive. END OF REPORT * ML=Testing performed at Main Lab DEPARTMENT OF PATHOLOGY, [address] [place] [address] George Marroquin M.D. Director [facility] Permit #[id number] 35 Anion gap measurement may be of limited value in the presence of any alkalosis, especially in a combined acid base disorder. . 36 A metabolite of Naproxen, O-desmethylnaproxen, has been shown to interfere with the Jendinoik-Sage method for measuring total bilirubin. Samples from patients who have taken Naproxen have shown spurious elevation in total bilirubin levels. 37 PLEASE NOTE NEW REFERENCE RANGE. 38 Please note updated reference range, effective 02/07/10 39 RUN DATE: 01/30/12 [facility] NMI LIVE PAGE 1 RUN TIME: 1248 Specimen Inquiry RUN USER: INTERFACE Name: JADYN HAWKINS GLENDY Status: DEP ER Re01/28/12 Age/Sex: 16/F Unit#: [id number] Location: ED : [birth year] SPEC #: [id number] SANDEEP: 01/28/12 STATUS: COMP REQ #: [id number] RECD: 01/28/[address]: [facility] SOURCE: URINE ENTR: 01/28/[address]: Scott HAND,Diana Arroyo [facility]: ORDERED: URINE C S ACT WKST: UR 01/30/12 #1 Procedure Result Verified Site > URINE CULTURE SENSITIVI Final 01/30/12- 1247 ML SCANT NORMAL URETHRAL OR PERINEAL NEIL ML - [facility] Permit #[id number] [address] [place] [address] DEPARTMENT OF PATHOLOGY, [address] [place] [address] [facility] Permit #[id number] George Marroquin M.D. Director Dai Tomas M.D. Mechanical System Technician Procedures Date CPT Code Description Status 09/24/2012 90490 Therapeutic,Prophylactic,Or Diagnostic Inj,SC/Im Completed Specify Drug 07/02/2012 43213 Therapeutic,Prophylactic,Or Diagnostic Inj,SC/Im Completed Specify Drug 04/16/2012 74442 Therapeutic,Prophylactic,Or Diagnostic Inj,SC/Im Completed Specify Drug 02/19/2012 79766 Destruction,Benign Lesions, Up To 14 Lesions Completed Encounters Type Date Location Provider CPT E/M Dx Office Visit 11/27/2017 3:00p [place] [address] R53.83 Office Visit 05/18/2017 4:30p [place] [address] Z11.3 Z01.419 N94.10 R32 Office Visit 04/17/2017 4:00p [place] [address] Z30.09 Office Visit 04/09/2017 4:30p [place] [address] R59.0 H66.93 Office Visit 12/11/2016 1:30p Main Office Diana Chavez, PRESS WASHER-C 14663 Z00.00 Z23 Office Visit 10/17/2016 11:45a Main Office Diana Chavez, PRESS WASHER-C 19670 M54.17 Office Visit 09/08/2016 3:45p Main Office Shaalcon Chavez, PR[employer] W[employer]ER-C 39807 M10.00 Office Visit 04/03/2015 9:45a Main Office Shakindrai Cruz Chavez, PRESS WASHER-C 21575 H66.42 H60.392 Office Visit 06/27/2014 11:15a Main Office Shawtarasi Cruz Chavez, PRESS WASHER-C 38862 110.5 Office Visit 03/31/2014 3:45p Main Office Shawnti Kory. Scott, PRESS WASHER-C 83626 381.04 Office Visit 01/26/2014 2:45p Main Office Diana Chavez, PRESS WASHER-C 56672 493.92 Office Visit 01/05/2014 9:45a Main Office Diana Chavez, PRESS WASHER-C 50235 493.92 Office Visit 12/07/2013 10:00a Main Office Hieu Watson M.D. 65543 465.9 Office Visit 07/28/2013 2:15p Main Office Diana Chavez, PRESS WASHER-C 02411 465.9 Office Visit 07/08/2013 3:45p Main Office Diana Chavez, PRESS WASHER-C 92509 465.9 493.92 Office Visit 04/08/2013 3:00p Main Office Diana Chavez, PRESS WASHER-C 29946 783.5 Office Visit 01/28/2013 10:45a Main Office Diana Chavez, PRESS WASHER-C 80005 477.1 Office Visit 11/30/2012 1:30p Main Office Diana Chavez, PRESS WASHER-C 95946 V70.0 V25.09 Office Visit 11/27/2012 9:30a Main Office Hieu Watson M.D. 54303 466.0 Office Visit 08/03/2012 3:45p Main Office Mikiewslade Chavez, PRESS WASHER-C 78465 626.8 Office Visit 05/03/2012 11:15a Main Office Diana Chavez [facility] [address]89[address] 922.31 Office Visit 04/16/2012 3:15p Main Office Diana Chavez [facility]- 85541 V25.09 Office Visit 01/29/2012 3:30p Main Office Diana Chavez [facility] 40913 V25.09 Office Visit 12/17/2011 9:45a Main Office Tiki Maxwell [facility] 13044 493.90 Office Visit 10/20/2011 4:15p Main Office Diana Chavez [facility]- 55194 V20.2 737.39 Plan of Care 01/28/2018 - ANGELITO Reece79.674 Pain in right toe(s)New Xrays:Foot Xray , Complete, 3 Or More ViewsComments:No acute concerns today.Xray ordered for further evaluation.Discussed supportive careReferred to podiatry.Educated on new /worsening symptoms and when to call/return. Patient stated understanding and agrees to planFollow up:schedule xray refer to podiatry
[2018-02-09 23:09] VITALS: BP 130/75
--- NOTE | 2018-02-10 07:50 | RAD ---
HISTORY: right ankle pain COMPARISONS: Right foot dated February 01, 2018 VIEWS: 8, Frontal, lateral, and oblique views of the right ankle with frontal and lateral views of the right foreleg FINDINGS: BONE DENSITY: Normal. BONES: There is a displaced oblique fracture of the distal fibula. JOINTS: There is no arthropathy. ALIGNMENT: There is widening of the tibiotalar interval with medial subluxation of the tibia with respect to the talus SOFT TISSUES: Unremarkable. OTHER FINDINGS: None. IMPRESSION: OBLIQUE DISPLACED FRACTURE OF THE DISTAL FIBULA WITH WIDENING OF THE TIBIOTALAR INTERVAL (ROBINS B FRACTURE) R0
== END 2018-02-09 23:06 | disposition home or self-care (01) ==
LOC: ED 20:42
DX: S82.831A Other fracture of upper and lower end of right fibula, initial encounter for closed fracture (principal); X50.1XXA Overexertion from prolonged static or awkward postures, initial encounter; Y92.9 Unspecified place or not applicable; Y93.39 Activity, other involving climbing, rappelling and jumping off
CPT/HCPCS: 29515; 96372; 99282; J1885

== ENCOUNTER 2018-02-11 10:42 | Day surgery (SDC) | payer BC ==
--- NOTE | 2018-02-10 14:08 | HP ---
AMENDED REPORT NOW INCLUDES COSIGNER DESIGNATION - ESIGNED BEFORE ADJUSTMENT HISTORY AND PHYSICAL: DATE OF ADMISSION/SURGERY: 02/11/18 DATE OF OFFICE VISIT: 02/10/18 SURGEON: Jessica Marinelli MD * (DICTATED BY ELO DONNELLY) PROCEDURE: ORIF of the right ankle. CHIEF COMPLAINT: Right ankle pain. HISTORY OF PRESENT ILLNESS: Ms. Hawkins is a 22-year-old female, who injured her right ankle yesterday on an inflatable water slide. She immediately had pain and went to the ER where she was diagnosed with a fracture. She presented to our office today with continued complaints of severe right ankle pain. She denies any calf pain or shortness of breath. PAST MEDICAL HISTORY: Asthma. PAST SURGICAL HISTORY: Ear tubes. CURRENT MEDICATIONS: Percocet. ALLERGIES: To AZITHROMYCIN. FAMILY HISTORY: Denies. SOCIAL HISTORY: She is a 22-year-old female. She lives with her mom. 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 She does not smoke, use drugs, or alcohol. REVIEW OF SYSTEMS: A complete 14-point review of systems was reviewed with the patient, is positive for asthma. PHYSICAL EXAMINATION GENERAL: She is well developed, well nourished, in no acute distress. VITAL SIGNS: She stands 5 feet 5 inches tall, weighs 230 pounds. Her blood pressure is 124/78, her heart rate is 64. HEENT: Normocephalic, atraumatic. NECK: Supple. No palpable lymph nodes. PULMONARY: The lungs are clear to auscultation bilaterally. CARDIO: Regular rate and rhythm. Strong S1 and S2. ABDOMEN: Soft, nontender, nondistended. MUSCULOSKELETAL: Right lower extremity: The skin is intact. There are no open wounds or abrasions. There is some mild swelling of the right ankle and dorsal foot. She has a 2+ dorsalis pedis pulse. She is able to wiggle all the toes and she has intact sensation. The calf is soft and nontender. She has full range of motion of the right knee. ASSESSMENT AND PLAN: Ms. Hawkins is a 22-year-old female with a right ankle fracture. She has elected to proceed with surgery with Dr. Marinelli, is scheduled for 02/11/18. The surgery is scheduled for ORIF of the right ankle. She will be nonweightbearing after the surgery. We will see her back 2 weeks after the surgery. ELO DONNELLY [id number]/[facility] #: [id number] MTDD
[~2018-02-11 10:42] MED LIST: Buffered Lidocaine 0.9% SYRIN* 5 ML/SYR SYRINGE INTRADERM ONE
[2018-02-11] MEDS ORDERED: fentaNYL* 50 MCG/ML 2 ML VIAL (100 MCG VIAL) ONE ×2 (11:17→13:37)
[2018-02-11] MEDS ORDERED: Midazolam* 1 MG/ML 2 ML VIAL (2 MG) ONE (11:17)
[2018-02-11] MEDS ORDERED: Ketorolac INJ* 30 MG/ML 1 ML VIAL ONE (11:20)
[2018-02-11] MEDS ORDERED: Acetaminophen TAB* 325 MG PO ONE (11:28)
[2018-02-11] MEDS ORDERED: Gabapentin CAP(*) 300 MG PO ONE (11:28)
[2018-02-11] MEDS ORDERED: HYDROmorphone INJ* 0.5 MG/0.5 ML SYRINGE IV PRN (11:29)
[2018-02-11] MEDS ORDERED: fentaNYL* 50 MCG/ML 2 ML VIAL (100 MCG VIAL) IV PRN (11:29)
[2018-02-11] MEDS ORDERED: DiMENhydriNATE IV* 50 MG/ML VIAL IV PUSH PRN (11:29)
[2018-02-11] MEDS ORDERED: Naloxone* 0.4 MG/ML 1 ML VIAL IV PRN (11:29)
[2018-02-11] MEDS ORDERED: HYDROcodone/ACETAMIN 5-325 MG* 1 TAB PO PRN ×2 (11:29)
[2018-02-11] MEDS ORDERED: Scopolamine 1.5 mg* PATCH TRANSDERM PRN (11:29)
[2018-02-11] MEDS ORDERED: Ondansetron INJ* 2 MG/ML VIAL IV PRN (11:29)
[2018-02-11] MEDS ORDERED: diPHENhydraMINE IV* 50 MG/ML 1 ml VIAL (BENADRYL) IV PRN (11:29)
[2018-02-11] MEDS ORDERED: Acetaminophen TAB* 325 MG PO PRN (11:29)
[2018-02-11] MEDS ORDERED: PROCHLORPERAZINE INJ 5 MG/ML 2 ML VIAL IV PRN (11:29)
[2018-02-11] MEDS ORDERED: Levalbuterol 0.63MG/3ML NEB* UNIT OF USE INH PRN (11:29)
[2018-02-11] MEDS ORDERED: Nalbuphine* 10 MG/ML 1 ML VIAL IV PRN (11:29)
[2018-02-11] MEDS ORDERED: Gabapentin CAP(*) 300 MG ONE (11:50)
[2018-02-11] MEDS ORDERED: Acetaminophen TAB* 325 MG ONE (11:51)
[2018-02-11] MEDS ORDERED: ceFAZolin 2 GM PREMIX (*) 2 GM/50 ML BAG IVPB ONE (11:51)
[2018-02-11] MEDS ORDERED: Bupivacaine 0.5% PF 10 ML VIAL INJ ONE (12:18)
[2018-02-11] MEDS ORDERED: Rocuronium* 10 MG/ML VIAL ONE (12:57)
[2018-02-11] MEDS ORDERED: HYDROmorphone INJ* 0.5 MG/0.5 ML SYRINGE ONE ×2 (13:01→13:11)
[2018-02-11] MEDS ORDERED: Dexamethasone IV* 4 MG/ML 1 ML (4 MG) ONE (13:41)
[2018-02-11] MEDS ORDERED: Famotidine IV* 10 MG/ML 2 ML (20 mg) ONE (13:41)
[2018-02-11] MEDS ORDERED: Propofol* 10 MG/ML 20 ML BTL IV PUSH ONE (13:41)
[2018-02-11] MEDS ORDERED: Succinylcholine* 20 MG/ML 10 ML VIAL ONE (13:41)
--- NOTE | 2018-02-11 14:58 | RAD ---
INDICATION: Right ankle operative reduction internal fixation. COMPARISON: Correlation is made with a prior x-ray study of the right ankle from February 09, 2018. TECHNIQUE: 29 seconds of intermittent fluoroscopic guidance were provided and 6 spot films of the right ankle were obtained in the operating room. FINDINGS: The films demonstrate placement of a metallic side plate present along the lateral aspect of the fibula transversing the oblique fracture of the distal fibula. There are 2 syndesmotic screws present. The bones are in normal alignment. IMPRESSION: INTRAOPERATIVE CONTROL FILMS. CPT II Codes: G9500
[2018-02-11 16:12] VITALS: BP 122/77
--- NOTE | 2018-02-12 04:49 | OP ---
DATE OF OPERATION: 02/11/18 - [facility] DATE OF : [birth year] ATTENDING SURGEON: Jessica Marinelli MD UTILIZATION SUPERVISOR: ELO Giang. Ms. Tate did help throughout the procedure with preparation of the leg, wound retraction, fracture reduction, manipulation of the ankle, and wound closure as well as splinting. ANESTHESIOLOGIST: Dr. Mccord. ANESTHESIA: General. PRE-OP DIAGNOSIS: Right ankle fracture bimalleolar equivalent with syndesmotic disruption in the distal lateral fibular fracture. POST-OP DIAGNOSIS: Right ankle fracture bimalleolar equivalent with syndesmotic disruption in the distal lateral fibular fracture. OPERATIVE PROCEDURE: Open reduction and internal fixation of the right ankle distal fibular fracture with syndesmotic screw placement. TOURNIQUET TIME: 39 minutes. COMPLICATIONS: None. ESTIMATED BLOOD LOSS: 100 cc. SPECIMEN: None. HARDWARE USED: This was a Phunware precontoured distal fibular locking plate, this was a 6-hole plate. There were 4 distal locking screws placed in the most distal portion of the plate distal to the fracture site. There were 2 syndesmotic screws that were used, that were 3.5 of plate 46 and 48 mm. There were 2 additional locking and 2 additional nonlocking screws placed in the plate proximal to the fracture site. BRIEF HISTORY/INDICATION: Ms. Hawkins is a 22-year-old female, who injured her right ankle while sliding down a water slide on 02/09/18. She was seen in the [facility] emergency room and diagnosed with a lateral fibular fracture and mortise widening. I saw her in the office on 02/10/18 and diagnosed her with a bimalleolar ankle fracture of fibula. We discussed operative and nonoperative options. The patient and her mother wished to proceed with surgical fixation of the fracture. Informed consent was obtained from the patient and her family. They understood the risks of surgery included , but were not limited to bleeding, infection, damage to nearby structures, continued pain, need for further surgery, failure of the hardware, loss of the reduction, failure of the bone to heal, peroneal nerve injury, early ankle arthritis, need for future hardware removal, stroke, heart attack, blood clot, and . She wished to proceed. INTRAOPERATIVE FINDINGS: Intraoperatively, the patient was noted to have a distal fibular fracture with minimal comminution. This was an oblique fracture , Avendano type B. She had significant medial mortise widening and disruption of the syndesmosis. No obvious medial or posterior malleolus fracture. DESCRIPTION OF PROCEDURE: Ms. Hawkins was identified in the preanesthesia unit. Her right lower extremity was marked as the correct operative side. Informed consent was signed and placed in the chart. The patient was taken to the operating room and placed under general anesthesia. A tourniquet was placed on the right thigh. Right lower extremity was prepped and draped in the usual sterile fashion. Preop time-out was made to correctly identify the patient's side and site. Appropriate perioperative antibiotics were given within 1 hour of incision. Tourniquet was inflated and total tourniquet time for this procedure was 39 minutes. A straight lateral fibular incision was made with a 15 blade and carried down through the skin. Tenotomies were used to carefully dissect down to the bone. Fracture site was identified. Bulb irrigation was used to irrigate the fracture site and curette was used to remove any hematoma. Fracture edges were cleared of soft tissue and periosteum. A pointed reduction forceps and a reduction maneuver were used to reduce the fracture. Satisfactory reduction was obtained. AP and lateral C-arm views showed that the reduction was satisfactory. The fracture was brought out to length and the ankle mortise was less wide. Pointed reduction forceps was placed with a squeeze on the tibia and fibula improved the syndesmotic space and lessened the widening of the ankle mortise. Decision at this point was made to place the fibular plate with 2 syndesmotic screws. A distal fibular precontoured Brandon locking plate was chosen, this was a 6- hole plate. This was placed on the distal fibula and C-arm views confirmed proper placement of the plate; 2 distal locking screws and 2 proximal locking screws were placed through the plate to hold the fracture reduction and the fracture reduction forceps was removed. AP and lateral views confirmed satisfactory reduction of the fracture. Next with the ankle in neutral, 2 syndesmotic screws were placed across the fibula into the tibia. These were fully threaded screws of length 46 and 48 mm. AP and lateral C-arm views confirmed satisfactory placement of the syndesmotic screws. AP and mortise views showed that the mortise widening was improved to anatomic. Next, 2 additional locking screws were placed in the distal plate and 2 nonlocking were placed proximal to the fracture site through the plate. Final AP and lateral views showed that there was satisfactory fracture reduction and ankle mortise was no longer widened. Tourniquet was turned down at 39 minutes. The wound was copiously irrigated with sterile saline. The incision was closed using interrupted 0 Vicryl, subcutaneous tissue was closed using interrupted 2-0 Vicryl. Skin was closed using running 3-0 nylon suture. Sterile Xeroform, 4 x 4s, and sterile Webril were used to cover the incision. A well-padded plaster posterior U splint was applied with the ankle in neutral. The patient's anesthesia was reversed without difficulty. She was taken to the PACU in stable condition. Intended weightbearing will be nonweightbearing. She will have the leg ice and elevated. She will have aspirin for DVT prophylaxis. She will follow up in 4 days for splint change and wound check. [id number]/[facility] #: [id number] JOEY
[2018-02-14] MEDS ORDERED: Scopolamine PATCH Remove* 1 NOTE MISC PATCH OFF ONE (11:30)
== END 2018-02-11 16:22 | disposition home or self-care (01) ==
LOC: OR 10:42
PROVIDERS: ATTEND Orthopaedic Surgery Adult Reconstructive Orthopaedic Surgery
DX: S82.61XA Displaced fracture of lateral malleolus of right fibula, initial encounter for closed fracture (principal); X58.XXXA Exposure to other specified factors, initial encounter; Y93.89 Activity, other specified; Y92.89 Other specified places as the place of occurrence of the external cause; J45.909 Unspecified asthma, uncomplicated; Z68.41 Body mass index [BMI] 40.0-44.9, adult; K21.9 Gastro-esophageal reflux disease without esophagitis
CPT/HCPCS: 76000; 81025; A9270-GY; C1713; C1776; J0330; J0690; J1100; J1170; J1885; J2250; J2704; J3010

== ENCOUNTER 2018-06-22 05:37 | Day surgery (SDC) | payer BC ==
--- NOTE | 2018-06-11 09:55 | HP ---
HISTORY AND PHYSICAL: DATE OF ADMISSION/SURGERY: 06/22/18 DATE OF OFFICE VISIT: 06/04/18 SURGEON: Jessica Marinelli MD* (dictated by ELO Donnelly). PROCEDURE: Hardware removal of right ankle. CHIEF COMPLAINT: Right ankle pain. HISTORY OF PRESENT ILLNESS: Ms. Hawkins is a 23-year-old female who underwent an ORIF of the right ankle back on 02/11/18. She continues to have some pain in the right ankle with prolonged standing and walking and is elected to have the hardware removed from the right ankle. PAST MEDICAL HISTORY: Asthma. PAST SURGICAL HISTORY: ORIF right ankle and ear tubes. CURRENT MEDICATIONS: None. ALLERGIES: To AZITHROMYCIN. FAMILY HISTORY: Cancer. SOCIAL HISTORY: She is a 23-year-old female. She lives with her parents. She does not smoke or use drugs, or alcohol. REVIEW OF SYSTEMS: A complete 14-point review of systems was reviewed with the patient. It was all negative and noncontributory. She denies history of DVT, PE, hepatitis, HIV, or anesthesia problems. PHYSICAL EXAMINATION GENERAL: She is well developed, well nourished, in no acute distress. VITAL SIGNS: She stands 64 inches tall, weighs 215 pounds. Blood pressure is 124/60, heart rate is 102. HEENT: Normocephalic, atraumatic. NECK: Supple. No palpable lymph nodes. PULMONARY: Lungs are clear to auscultation bilaterally. CARDIO: Regular rate and rhythm. Strong S1, S2. ABDOMEN: Soft, nontender, nondistended. MUSCULOSKELETAL: Right lower extremity: The skin is intact. There are no open wounds or abrasions. Her incisions are well healed with no signs of infection. There is minimal swelling of the ankle. Range of motion is 5 degrees of dorsiflexion, 40 degrees plantar flexion. Her lower extremity muscle group strengths are intact at 5/5. She has intact sensation and 2+ dorsalis pedis pulse. NEUROLOGIC: She is alert and oriented x3. ASSESSMENT AND PLAN: Ms. Hawkins is a 23-year-old who underwent an ORIF of the right ankle on 02/11/18. Radiographs showed that is well healed. She is elected to have the syndesmotic screws removed. This surgery is scheduled for 06/22/[address] Marinelli discussed the risks and benefits of the surgery at today's visit and all of her questions were answered. She will follow up with Dr. Marinelli in 2 weeks after the surgery. ELO DONNELLY [id number]/[facility] #: [id number] JOEY
[2018-06-22] MEDS ORDERED: Levalbuterol 1.25MG/0.5ML NEB INH ONE (06:00)
[2018-06-22] MEDS ORDERED: Levalbuterol 1.25MG/0.5ML NEB ONE (06:13)
[2018-06-22] MEDS ORDERED: ceFAZolin 2 GM PREMIX in ORs 2 GM/50 ML BAG IVPB ONE (06:13)
[2018-06-22] MEDS ORDERED: Propofol* 500 MG/50 ML BTL ONE (06:26)
[2018-06-22] MEDS ORDERED: fentaNYL* 50 MCG/ML 2 ML VIAL (100 MCG VIAL) ONE (06:27)
[2018-06-22] MEDS ORDERED: Lidocaine 2% PF * 5 ML VIAL ONE (06:27)
[2018-06-22] MEDS ORDERED: Midazolam* 1 MG/ML 2 ML VIAL (2 MG) ONE (06:27)
[2018-06-22] MEDS ORDERED: Propofol* 10 MG/ML 20 ML BTL ONE (06:27)
[2018-06-22] MEDS ORDERED: Bupivacaine 0.5% PF 10 ML VIAL INJ ONE (07:44)
[2018-06-22] MEDS ORDERED: Ketorolac INJ* 30 MG/ML 1 ML VIAL ONE (07:54)
[2018-06-22] MEDS ORDERED: Dexamethasone IV* 4 MG/ML 1 ML (4 MG) ONE (07:54)
[2018-06-22] MEDS ORDERED: Ondansetron INJ* 2 MG/ML VIAL ONE (07:54)
[2018-06-22] MEDS ORDERED: Metoclopramide IV* 5 MG/ML 2 ML VIAL ONE (07:54)
[2018-06-22] MEDS ORDERED: Acetaminophen IV 1GM/100ML * 1,000 MG/100 ML VIAL IVPB ONE (07:55)
[2018-06-22] MEDS ORDERED: Naloxone* 0.4 MG/ML 1 ML VIAL IV PRN (07:55)
[2018-06-22] MEDS ORDERED: fentaNYL* 50 MCG/ML 2 ML VIAL (100 MCG VIAL) IV PRN (07:55)
[2018-06-22] MEDS ORDERED: DiMENhydriNATE IV* 50 MG/ML VIAL IV PUSH PRN (07:55)
[2018-06-22 09:16] VITALS: BP 134/89
--- NOTE | 2018-06-23 11:14 | OP ---
OPERATIVE NOTE: DATE OF OPERATION: 06/22/18 DATE OF : [birth year] ATTENDING SURGEON: Jessica Marinelli MD CHIEF ACCOUNTING OFFICER: ELO Marie Lilian did help throughout the procedure with preparation of the leg, manipulation of the leg , and wound closure. ANESTHESIOLOGIST: Dr. Cui. ANESTHESIA: General. PRE-OP DIAGNOSIS: Right ankle stiffness and pain after syndesmotic screw placement for injury. POST-OP DIAGNOSIS: Right ankle stiffness and pain after syndesmotic screw placement for injury. OPERATIVE PROCEDURE: Right ankle syndesmotic screw removal. SPECIMEN: Two syndesmotic screws that were sent to Pathology. COMPLICATIONS: None. ESTIMATED BLOOD LOSS: Less than 25 cc. BRIEF HISTORY/INDICATION: Ms. Hawkins is a 23-year-old female who sustained a bimalleolar ankle fract ure approximately 4 months ago. She had syndesmotic screw placement at the time of open reduction an d internal fixation for widened ankle mortise. The patient has healed the fracture. She continues t o have stiffness and pain at the ankle; therefore, we elected to remove her syndesmotic screws. Infor med consent was obtained from the patient. She understood the risks of the surgery included, but wer e not limited to bleeding, infection, damage to nearby structures, continued pain, need for further s urgery, intraoperative fracture, nerve palsy, failure to remove the screws, breaking of the hardware, stroke, heart attack, blood clot, and . She wished to proceed. INTRAOPERATIVE FINDINGS: Intraoperatively, the patient had no abnormality of soft tissues laterally. The syndesmotic screws were removed without incident. DESCRIPTION OF PROCEDURE: Ms. Hawkins was identified in the preanesthesia unit. Her right lower extre mity was marked as the correct operative side. Informed consent was signed and placed in the chart. The patient was taken to the operating room and placed under general anesthesia. Right lower extrem ity was prepped and draped in the usual sterile fashion. Preop time-out was made to correctly identi fy the patient's side and site. Appropriate perioperative antibiotics were given within 1 hour of in cision. C-arm views were used to locate the position of the 2 syndesmotic screws. A 10 blade was used to ope n the lateral incision about 4 cm in length. Tenotomies and electrocautery were used to dissect down to the syndesmotic screw heads. Screw otr flatbed driver was used to carefully remove the two syndesmotic screw s. AP and lateral C- arm views were taken. These confirmed that screws were removed without inciden t. There was no ankle mortise widening. The 2 screw sites were cleared off any fibrotic debris with a small curette. This area was irrigated with bulb syringe and normal saline. The incision was clos ed in a layered fashion using a 2-0 Vicryl. The skin was closed using running 3-0 Monocryl and [place] tilley. Sterile 4x4s, Webril, and Woody wrap were used to cover the incision. The patient's anesthesia was reversed without difficulty. She was taken to the PACU in stable condition. Intended weightbear ing will be weightbearing as tolerated. Intended DVT prophylaxis will be aspirin. [id number]/[facility] #: [id number]
== END 2018-06-22 09:32 | disposition home or self-care (01) ==
LOC: OR 05:37
PROVIDERS: ATTEND Orthopaedic Surgery Adult Reconstructive Orthopaedic Surgery
DX: T84.84XA Pain due to internal orthopedic prosthetic devices, implants and grafts, initial encounter (principal); Y83.1 Surgical operation with implant of artificial internal device as the cause of abnormal reaction of the patient, or of later complication, without mention of misadventure at the time of the procedure; S82.841D Displaced bimalleolar fracture of right lower leg, subsequent encounter for closed fracture with routine healing; X58.XXXD Exposure to other specified factors, subsequent encounter; Y92.9 Unspecified place or not applicable; J45.909 Unspecified asthma, uncomplicated
CPT/HCPCS: 76000; 81025; 88300; A9270-GY; J0690; J1100; J1885; J2250; J2405; J2704; J2765; J3010